=== PATIENT | male | born 1990 | race Caucasian/White ===

== ENCOUNTER 2023-12-07 15:43 | Outpatient (CLI) | payer OTHER | END 2023-12-07 15:44 | disposition home or self-care (01) | LOC: CSHMRI 15:43 | PROVIDERS: ATTEND Internal Medicine | DX: M51.16 Intervertebral disc disorders with radiculopathy, lumbar region (principal); M48.061 Spinal stenosis, lumbar region without neurogenic claudication; M43.17 Spondylolisthesis, lumbosacral region; M47.26 Other spondylosis with radiculopathy, lumbar region | CPT/HCPCS: 72148 ==

== ENCOUNTER 2025-07-29 08:18 | Outpatient (CLI) | payer OTHER | END 2025-07-29 08:19 | disposition home or self-care (01) | LOC: CSHSLEEP 08:18 | PROVIDERS: ATTEND Internal Medicine | DX: G47.33 Obstructive sleep apnea (adult) (pediatric) (principal); F41.9 Anxiety disorder, unspecified | CPT/HCPCS: 95800 ==

== ENCOUNTER 2025-09-02 08:43 | Outpatient (CLI) | payer OTHER | END 2025-09-02 08:44 | disposition home or self-care (01) | LOC: CSHSLEEP 08:43 | PROVIDERS: ATTEND Internal Medicine | DX: G47.33 Obstructive sleep apnea (adult) (pediatric) (principal); F41.9 Anxiety disorder, unspecified | CPT/HCPCS: 95811 ==